=== PATIENT | female | born 1980 | race Caucasian/White ===

== ENCOUNTER 2016-08-31 20:27 | Emergency (ER) | payer MEDICARE, MEDICAID ==
[~2016-08-31] VITALS: Ht 162.6 cm; Wt 71.0 kg
[2016-08-31 20:40] VITALS: BP 152/98
== END 2016-08-31 23:14 | disposition left against medical advice (07) ==
LOC: ER 21:34
DX: R45.851 Suicidal ideations (principal); F31.89 Other bipolar disorder
CPT/HCPCS: 99284